=== PATIENT | male | born 1995 | race Caucasian/White ===

== ENCOUNTER 2018-09-14 15:10 | Emergency (ER) | payer MEDICAID ==
[~2018-09-14] VITALS: Ht 188 cm; Wt 85.3 kg
[2018-09-14 15:25] VITALS: BP 132/76; Ht 188 cm; Wt 85.3 kg
== END 2018-09-14 16:06 | disposition home or self-care (01) ==
LOC: ED 15:10
DX: S43.005A Unspecified dislocation of left shoulder joint, initial encounter (principal); X58.XXXA Exposure to other specified factors, initial encounter; Y93.89 Activity, other specified; Y92.89 Other specified places as the place of occurrence of the external cause; Y99.8 Other external cause status